=== PATIENT | male | born 1980 | race African-American/Black ===

== ENCOUNTER 2021-02-14 12:04 | Emergency (ER) | payer MEDICAID, SELFPAY ==
[2021-02-14 12:05] VITALS: BP 128/82; PULSE 89; RESP 18; TEMP 36.4; O2SAT 99; BMI 24.2
--- NOTE | 2021-02-14 12:36 | EDS_ITS ---
HPI History of Present Illness Chief Complaint: Abscess Detail of Chief Complaint: Redness and swelling to the right ear Informant: patient Narrative Narrative: Patient noticed some mild discomfort to the pinna of the right ear 3 days ago. Patient saw his primary care physician yesterday for a physical and was told it may be a cyst that is developed and to keep an eye on it if it worsened to let her know. Today he noted that it was more swollen and red and the redness extended to the rest of the upper earlobe so he was instructed to come into the emergency department by the primary care physician. Patient denies any fevers or chills. Patient has no medical history otherwise. Prior similar symptoms: No PFSH PFSH Home Medications cephalexin 500 mg PO Q6H 10 Days #40 cap 02/14/21 [Rx Last Taken Unknown] sulfamethoxazole-trimethoprim [Bactrim DS] 1 tab PO BID #20 tab 02/14/21 [Rx Last Taken Unknown] Allergy/AdvReac Type Severity Reaction Status Date / Time No Known Allergies Allergy Verified 02/14/21 12:07 [facility] ED Constitutional Constitutional ED: Reports systems reviewed and no addt'l complaints, except as documented; Denies body ache(s), change in weight or chills Eyes Eyes: Denies acute decrease in peripheral vision, change in vision, double vision or loss of vision ENT ENT ED: Reports none, ear pain and other Details: Redness to right earlobe and soft tissue swelling ; Denies lip swelling, loss taste/smell, neck pain, otalgia or sore throat Cardiovascular Cardiovascular: Reports none; Denies abdominal pain, chest pain with activity, leg edema, lightheadedness, palpitations, rapid heart rate or syncope Respiratory/Chest Respiratory/Chest: Reports none; Denies change in mental status, dry cough, dyspnea, hemoptysis, shortness of breath at rest or shortness of breath with exertion Gastrointestinal Gastrointestinal: Reports none; Denies abdominal pain, change in stool character, diarrhea, hematemesis, hematochezia, melena, rectal bleeding or vomiting Genitourinary Genitourinary ED: Reports none; Denies abdominal discomfort, anuria, dysuria, genital pain or polyuria Musculoskeletal Musculoskeletal: Reports none; Denies arthralgias, back pain, difficulty walking, extremity pain, muscle weakness or myalgias Integumentary Reports none; Denies abscess or rash Neurologic Neurologic: Reports none; Denies abnormal gait, confusion, focal weakness, frequent falls, headache(s), loss of vision, numbness, paresthesias, radicular pain, vertigo or weakness Psychiatric Psychiatric: Reports systems reviewed and no addt'l complaints, except as documented and none; Denies behavioral changes, confusion, difficulty concentrating, hallucinations, suicidal ideation, tactile hallucinations or visual hallucinations Endocrine Endocrinology: Denies none, cold intolerance, excessive sweating, fatigue or heat intolerance Hematologic/Lymphatic Hematologic/Lymphatic: Reports none; Denies anemia, easy bleeding or easy bruising Allergic/Immunologic Allergic/Immunologic ED: Denies as per HPI, none, lip swelling, mouth swelling, throat swelling, tongue swelling or hives EXAM Physical Exam Const Vital Signs: 02/14/21 12:05 Temperature 97.6 F L Temperature Source Temporal Pulse Rate 89 Respiratory Rate 18 Blood Pressure 128/82 H Blood Pressure Mean 97 Pulse Ox 99 Oxygen Delivery Method Room Air Positive well nourished and well developed General Appearance ED: well developed and NAD HEENT Reports TM's clear and moist mucous membranes HEENT Narrative: Evaluation of the right earlobe does reveal what appears to be a small soft tissue abscess measuring approximately 1 cm in diameter at the inner helix with some surrounding erythema to the upper pinna. No mastoid tenderness on exam. No erythema over the mastoid. TMs are clear bilaterally. normocephalic and atraumatic; Negative for trauma or tenderness Tympanic Membrane ED: Yes TM's clear Eyes PERRL and EOMs intact bilaterally General Eye ED: Negative for pale conjunctiva or scleral icterus Neck no lymphadenopathy, supple and no JVD General: Negative for tenderness Chest Wall inspection of chest normal and palpation of chest normal Chest: Negative for tenderness Resp normal respiratory effort and clear to auscultation bilaterally Effort and Inspection: Negative for respiratory distress or pain with movement Auscultation: Negative for rhonchi, wheezes or diminished lung sounds Cardio regular rate, regular rhythm, S1 normal heart sound, S2 normal heart sound and no murmurs Peripheral Pulses: pulses 2+ throughout GI normal to inspection, nondistended, normoactive bowel sounds, soft to palpation, non-tender, non-distended and no masses Back/Spine no CVA tenderness and no thoracic nor lumbar tenderness Extremity normal to inspection General Extremety ED: Negative for edema General Extremity: Negative for edema Neuro oriented x3, CN's II-XII intact bilaterally, no sensory deficits noted and gait normal Sensorium / Orientation: awake, alert, oriented to person, oriented to place and oriented to time Motor Exam: strength 5/5 throughout and strength abnormal Psych mental status grossly normal Skin no rashes or lesions noted and no wounds MDM MDM MDM Narrative Medical decision making narrative: Initially recommended incision and drainage of suspected early abscess to which the patient agreed. I attempted to make a 7 mm incision into the suspected fluctuant portion of the abscess and only blood returned without any evidence of purulent debris. Procedures Other Procedures Procedure(s): Incision and drainage of suspected right ear abscess-patient had local anesthetic 1% lidocaine total of 1 cc used to anesthetize the area of the pinna. Using an 11 blade a small 7 mm incision was made with only blood return and no evidence of purulent drainage. Clean dressing applied. Discharge Plan Triage Chief Complaint: Abscess ED Provider: Sima Ledesma Dx/Rx/DC Orders Clinical Impression: Cellulitis of auricle of right ear Instructions: ED Cellulitis Prescriptions: New cephalexin 500 mg capsule 500 mg PO Q6H 10 Days Qty: 40 RF: 0 sulfamethoxazole-trimethoprim [Bactrim DS] 800-160 mg tablet 1 tab PO BID Qty: 20 RF: 0 Referrals: JUANCARLOS CHURCH [Other] - 3-5 Days Disposition Disposition: Home, self care
[2021-02-14] MEDS: Smz/Tmp Ds Tablet 1 TABLET PO (13:14)
[2021-02-14] MEDS: Cephalexin 250 MG Capsule 500 MG PO (13:14)
[2021-02-14] MEDS: Lidocaine 1% (20 ml mdv) 20 ML Vial INFILT (13:14)
== END 2021-02-14 13:21 | disposition home or self-care (01) ==
PROVIDERS: Emergency Provider Emergency Medicine
DX: H60.11 Cellulitis of right external ear (principal); H60.01 Abscess of right external ear
CPT/HCPCS: 69000; 99283